=== PATIENT | female | born 1985 | race Two or more races ===

== ENCOUNTER 2022-12-02 02:26 | Emergency (ER) | payer OTHER ==
[~2022-12-02] VITALS: Ht 162.6 cm; Wt 63.5 kg
[2022-12-02] MEDS ORDERED: ALBU8.5H8 IH (02:41)
--- NOTE | 2022-12-02 02:43 | NUR ---
Patient ambulated to ER with boyfriend with c/o rapid heart rate, placed into room #1-b, informed of plan of care, placed on monitor, bedside EKG in progress for MD review, #20g established in right ac area, blood collected and sent to lab.
[2022-12-02] MEDS ORDERED: IV NS 1000 ML 1,000 ML IV ONE (02:45)
[2022-12-02] MEDS ORDERED: ADENOSINE 6 MG/2 ML SYR IV ONE ×2 (02:45→02:47)
[2022-12-02 02:52] LABS: MEAN CORPUSCULAR HEMOGLOBIN 30.4 uug (24.7-32.8); MEAN CORPUSCULAR VOLUME 88.7 fL (75.5-95.3); PLATELET COUNT (AUTO) 269 K/uL (179-408)
[2022-12-02] MEDS ORDERED: MAGNESIUM SULFATE/D5W 200 ML ONE (02:52)
--- NOTE | 2022-12-02 02:58 | NUR ---
Medicated as per order, MD was at bedside. IVF infusing as per order, side rails up will continue to monitor.
--- NOTE | 2022-12-02 03:00 | NUR ---
Mag sulfate infusing as per MD order 2gm ivpb.
[2022-12-02 03:05] LABS: CARBON DIOXIDE 26 mmol/L (21-32); CHLORIDE 100 mmol/L (98-107); GLUCOSE 118 mg/dL (74-106); UREA NITROGEN, BLOOD 13 mg/dL (7-18)
[2022-12-02 03:12] LABS: POTASSIUM 2.7 mmol/L (3.5-5.1)
[2022-12-02] MEDS ORDERED: POTASSIUM CHLORIDE 200 ML ONE (03:24)
[2022-12-02] MEDS ORDERED: POTASSIUM CHLORIDE 20 MEQ TAB.PRT.SR ONE (03:24)
[2022-12-02] MEDS ORDERED: POTASSIUM CHLORIDE 10 MEQ TAB.PRT.SR ONE (03:26)
[2022-12-02] MEDS ORDERED: POTASSIUM BICARBONATE/CIT AC 25 MEQ TABLET.EFF ONE (03:30)
[2022-12-02] MEDS ORDERED: POTASSIUM BICARBONATE/CIT AC 25 MEQ TABLET.EFF PO ONE (03:30)
[2022-12-02] MEDS: MAGNESIUM SULFATE/D5W 100 ML IV SCH ×2 (03:42→04:45)
[2022-12-02] MEDS ORDERED: LORAZEPAM 2 MG/1 ML VIAL ONE (04:10)
[2022-12-02] MEDS ORDERED: LORAZEPAM 2 MG/1 ML VIAL IV ONE (04:15)
--- NOTE | 2022-12-02 04:19 | NUR ---
MD was at bedside talking with patient, ordered 1mg of ativan iv, given as per order, patient requested and given another blanket. IVF as per order infusing via pump, will continue to monitor.
[2022-12-02] MEDS: POTASSIUM CHLORIDE 50 ML IV SCH ×2 (04:42→06:30)
[2022-12-02] MEDS ORDERED: LORA-259 PO (05:43)
[2022-12-02] MEDS ORDERED: POTA-194 PO (05:43)
--- NOTE | 2022-12-02 06:05 | NUR ---
Patient resting, remains easy to arouse, no voiced c/o pain or discomfort at this time. 2nd bedside EKG in progress for MD review, 2nd potassium up at this time via the pump. Will continue to monitor.
[2022-12-02] MEDS ORDERED: IV NORMAL SALINE 1000 ML BAG IV ONE (07:30)
[2022-12-02 09:54] LABS: CREATININE 0.8 mg/dL (0.6-1.3); POTASSIUM 5.7 mmol/L (3.5-5.1)
--- NOTE | 2022-12-02 10:53 | NUR ---
PT WAS D/C'd TO HOME. D/C INSTRUCTIONS GIVEN TO THE PT BY DR LOCK.
[2022-12-02 10:55] VITALS: BP 132/75
[2022-12-03] MEDS ORDERED: PROP10TA10 PO (13:30)
== END 2022-12-02 10:57 | disposition home or self-care (01) ==
LOC: ER 02:37
DX: I47.1 Supraventricular tachycardia (principal); E87.6 Hypokalemia
CPT/HCPCS: 36415; 83735; 84484; 85025; 93005; A4663; J0153; J2060; J3475; J3480; J7040

== ENCOUNTER 2022-12-02 16:39 | Inpatient (IN) | payer OTHER ==
[~2022-12-02] VITALS: Ht 162.6 cm; Wt 63.5 kg
[~2022-12-02 16:39] MED LIST: ALBU8.5H8 IH; LORA-259 PO; POTA-194 PO
[2022-12-02] MEDS ORDERED: LORAZEPAM 0.5 MG TABLET PO ONE (17:45)
[2022-12-02] MEDS ORDERED: LORAZEPAM 1 MG TABLET ONE (17:55)
[2022-12-02 17:57] LABS: HEMATOCRIT 38.2 % (31.2-41.9); MEAN CORPUSCULAR HEMOGLOBIN 30.2 uug (24.7-32.8); MEAN CORPUSCULAR VOLUME 90.1 fL (75.5-95.3); PLATELET COUNT (AUTO) 235 K/uL (179-408)
[2022-12-02 18:04] LABS: CREATININE 0.9 mg/dL (0.6-1.3); POTASSIUM 4.2 mmol/L (3.5-5.1)
--- NOTE | 2022-12-02 18:17 | NUR ---
PT IS IN ROOM #2A. DR LOCK EVALUATED THE PT.
--- NOTE | 2022-12-02 19:24 | NUR ---
PATIENT RESTING IN BED WITH FAMILY AT BEDSIDE, UPDATED ON PLAN OF CARE AT THIS TIME. PATIENT REMAINS A/O X4 WITH NO VOICED C/O PAIN OR DISCOMFORT AT THIS TIME. NO S/S OF ANY DISTRESS NOTED AT THIS TIME, WILL CONTINUE TO MONITOR.
--- NOTE | 2022-12-02 19:41 | NUR ---
RADIOLOGY AT BEDSIDE.
[2022-12-02 20:01] LABS: *AMPHETAMINE, URINE NEGATIVE (NEGATIVE); *CANNABINOID, URINE NEGATIVE (NEGATIVE); *COCCAINE, URINE NEGATIVE (NEGATIVE); *OPIATE, URINE NEGATIVE (NEGATIVE); *PHENCYCLIDINE SCREEN,URINE NEGATIVE (NEGATIVE)
--- NOTE | 2022-12-02 20:15 | NUR ---
LAB AT BEDSIDE.
[2022-12-02 20:25] LABS: *URINE HCG, QUAL NEGATIVE (NEGATIVE)
--- NOTE | 2022-12-02 21:30 | NUR ---
MOM AT BEDSIDE, PATIENT CONTINUES TO REST WITHOUT ANY C/O PAIN OR DISCOMFORT.
--- NOTE | 2022-12-02 22:05 | NUR ---
Paged Epic panel for admssion, waiting for Kiersten Baumann NP to call back.
--- NOTE | 2022-12-02 22:07 | NUR ---
PATIENT INFORMED THAT SHE WILL BE ADMITTED TO THE HOSPITAL, AWAITING ROOM ASSIGNMENT. #20G ESTABLISHED IN RIGHT AC AT THIS TIME. REMAINS WITHOUT ANY C/ O, FAMILY REMAINS AT BEDSIDE.
--- NOTE | 2022-12-02 22:17 | NUR ---
Dr Ramos spoke to Kiersten Baumann [employer]AMINER economist research assistant for [facility] who accept patient to Tele floor
--- NOTE | 2022-12-02 22:25 | NUR ---
ATTEMPTED TO GIVE REPORT, WILL CALL ME BACK.
[2022-12-02] MEDS ORDERED: MORPHINE SULFATE 2 MG/1 ML DISP.SYRIN IV PRN (22:30)
[2022-12-02] MEDS ORDERED: DOCUSATE SODIUM 100 MG CAPSULE PO PRN (22:30)
[2022-12-02] MEDS ORDERED: ACETAMINOPHEN 325 MG TABLET PO PRN (22:30)
[2022-12-02] MEDS ORDERED: MAG HYDROX/AL HYDROX/SIMETH 30 ML LIQUID UDC PO PRN (22:30)
[2022-12-02] MEDS ORDERED: ONDANSETRON 4 MG/2 ML VIAL IV PRN (22:30)
--- NOTE | 2022-12-02 23:40 | NUR ---
REPORT GIVEN TO ACCEPTING NURSE JEYSON, PATIENT REMAINS STABLE FOR TRANSPORT TO UNIT.
--- NOTE | 2022-12-03 00:05 | NUR ---
Admitted patient in tele floor under the care of Kiersten sanchez NEUROPHYSIOLOGICAL TECHNICIAN, no sob no chest pain, tele monitor sinus rhythm 90's, complain of mild headaches, skin intact, patient prefer to keep her own purses, cont to monitor.
[2022-12-03 00:27] LABS: *BILIRUBIN,URIN NEGATIVE (NEGATIVE); *BLOOD, URINE 1+ (NEGATIVE); *CLARITY,URINE CLEAR (CLEAR); *COLOR,URINE YELLOW (YELLOW); *KETONES,URINE NEGATIVE (NEGATIVE); *UROBILINOGEN,URINE 0.2 E.U./dl (NORMAL); LEUKOCYTE ESTERASE ,URINE NEGATIVE (NEGATIVE); NITRITE, URINE NEGATIVE (NEGATIVE); UGLUCOSE NEGATIVE (NEGATIVE)
[2022-12-03 00:30] VITALS: BP 147/94
[2022-12-03 00:32] LABS: BACTERIA,URINE NONE SEEN /HPF (NONE SEEN); SQUAMOUS EPITHELIAL CELL,UR FEW /HPF (NONE SEEN); WBC,URINE 0-3 /HPF (0-3)
[2022-12-03 06:37] VITALS: BP 117/83
[2022-12-03] MEDS ORDERED: PANTOPRAZOLE SODIUM 40 MG TABLET.DR PO SCH (07:00)
[2022-12-03 07:43] LABS: BILIRUBIN,TOTAL 0.7 mg/dL (0.2-1.0); CREATININE 0.8 mg/dL (0.6-1.3); MAGNESIUM 2.1 mg/dL (1.8-2.4); PHOSPHOROUS 3.8 mg/dL (2.5-4.9); POTASSIUM 4.1 mmol/L (3.5-5.1); TOTAL PROTEIN, SERUM 7.6 g/dL (6.4-8.2)
[2022-12-03 08:16] LABS: MEAN CORPUSCULAR HEMOGLOBIN 30.2 uug (24.7-32.8); MEAN CORPUSCULAR VOLUME 89.9 fL (75.5-95.3); PLATELET COUNT (AUTO) 241 K/uL (179-408)
[2022-12-03 08:31] VITALS: BP_SYST 115; BP_SYST 129; BP_SYST 133; BP_DIAS 87; BP_DIAS 99
[2022-12-03] MEDS ORDERED: ASPIRIN 81 MG TAB.CHEW PO SCH (09:00)
--- NOTE | 2022-12-03 10:00 | NUR ---
pt was seen by hospitalist and licensed physical therapy assistant.
[2022-12-03 13:00] VITALS: BP 141/96
[2022-12-03] MEDS ORDERED: PROP10TA10 PO (13:30)
--- NOTE | 2022-12-03 15:09 | NUR ---
pt was discharge. pt denies any pain, palpitation, nausea/vomiting and dizziness. pt is ambulatory. pt spoke with hospitalist prior discharge. verbalized understanding of discharge, pt will go home with family. 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
[2022-12-03 17:49] LABS: THYROID STIMULATING HORMONE 1.984 mIU/mL (0.358-3.740)
== END 2022-12-03 15:05 | disposition home or self-care (01) | DRG 880 ==
LOC: ER 16:39 → TELE3 22:11 → TELE 23:17
PROVIDERS: ADMIT Registered Nurse; ATTEND Registered Nurse
DX: F41.9 Anxiety disorder, unspecified (principal); R00.0 Tachycardia, unspecified; R11.2 Nausea with vomiting, unspecified; J45.909 Unspecified asthma, uncomplicated; Z86.16 Personal history of COVID-19; Z20.822 Contact with and (suspected) exposure to COVID-19
CPT/HCPCS: 36415; 71045; 83735; 84100; 84443; 84484; 84703; 85025; 93307; A4663; G0378